=== PATIENT | male | born 1940 | race Caucasian/White ===

== ENCOUNTER 2016-08-24 14:13 | Day surgery (SDC) | payer BC ==
--- NOTE | 2016-08-24 07:16 | History and Physical - [facility] ---
CHIEF COMPLAINT/HISTORY OF CHIEF COMPLAINT: This patient presents with a history of an intractable post laminectomy radiculitis. A spinal cord stimulator trial was conducted on 07/26/16 with up to 75-90% pain control. Due to the failure of all therapy and the success of the stimulator trial, the patient presents today for implantation of a permanent system. PAST MEDICAL HISTORY: Hypertension, chronic obstructive pulmonary disease, cerebrovascular disease, and bladder dysfunction. PAST SURGICAL HISTORY: Spinal surgery and multiple surgeries to be identified. EMPLOYMENT STATUS: Retired. MEDICATIONS ON ADMISSION: List to be provided. ALLERGIES: IODINE. FAMILY/PSYCHOSOCIAL HISTORY: Social history - Social alcohol and caffeine. Family history - Diabetes and cancer. SYSTEMS REVIEW: The patient seems appropriate in no acute distress. The remainder of the systems review is positive for breathing difficulties, degenerative arthritis, depression and difficulty sleeping. PHYSICAL EXAMINATION: Height and weight are not known. Vital signs - Not available. HEENT: Within normal limits. LUNGS: Clear. HEART: Regular rate and rhythm. ABDOMEN: Nontender. MUSCULOSKELETAL: Examination of the musculoskeletal system shows diffuse tenderness at the lumbar spine. Range of motion does cause pain moving down throughout the low back moving into both legs. Ambulation - No assistive device utilized. NEUROLOGIC: Cranial nerves are intact. IMPRESSION: 1. POST LUMBAR LAMINECTOMY SYNDROME, ICD10 CODE M96.1. 2. LUMBAR RADICULITIS, ICD10 CODE M54.16 AND M54.17. PLAN: Due to the failure of all therapy and the success of the spinal cord stimulator trial, the patient presents today for implantation of a permanent system. All of the potential risks, side effects, and complications have been reviewed including dural puncture, nerve root injury, and spinal cord injury. He understands and has consented. We will consider outpatient although an overnight stay will be evaluated if necessary. STEPHY WESLEY D.O. Date & Time JOB NUMBER: [id number] MTDD
[~2016-08-24 14:13] MED LIST: *PACU ONLY* KETAMINE HCL 10 MG/ML (20ML) VIAL IV ONE; ACETAMINOPHEN 1000MG/100 ML PREMIX IV ONE; BUPIVACAINE 0.5% W/EPI MPF 30 ML VIAL IVP ONE; CLINDAMYCIN 600MG/4 ML VIAL IV ONE; CLINDAMYCIN 600MG/50ML PREMIX 600 MG/50 ML BAG IVPB ONE; FAMOTIDINE 20MG TABLET PO ONE; FENTANYL PF 100MCG/2ML VIAL IV ONE; FLUMAZENIL 1MG/10ML VIAL IV ONE; LIDOCAINE 1% W/EPI 1:200,000 MPF 30ML SQ ONE; LIDOCAINE 2% MDV (20MG/ML) 20ML VIAL IV ONE; MECLIZINE 25 MG TABLET PO ONE; METOCLOPRAMIDE 10 MG TABLET PO ONE; MIDAZOLAM HCL 2MG/2ML VIAL IV ONE; PROPOFOL 10 MG/ML VIAL IV ONE
[2016-08-24 15:57] LABS: PARTIAL THROMBOPLASTIN TIME 27.6 SECONDS (24.5-39.1)
[2016-08-24 16:08] LABS: INR 0.99; PROTHROMBIN TIME (PATIENT) 11.2 SECONDS (9.5-12.1)
[2016-08-24] MEDS ORDERED: PATIENT OWN MED: MECLIZINE 25 MG PO PRN (17:31)
[2016-08-24] MEDS ORDERED: BENZONATATE 200 MG PO PRN (17:32)
[2016-08-24] MEDS ORDERED: AL HYDROX/MAG HYDROX 30ML UD PO PRN (17:35)
[2016-08-24] MEDS ORDERED: METOCLOPRAMIDE 10 MG TABLET PO PRN (17:35)
[2016-08-24] MEDS ORDERED: OXYCODONE/APAP 10MG-325MG TABLET PO PRN (17:35)
[2016-08-24] MEDS ORDERED: TEMAZEPAM 15 MG CAPSULE PO PRN ×2 (17:35)
[2016-08-24] MEDS ORDERED: HYDROMORPHONE HCL 2 MG/ML VIAL IM PRN (17:35)
[2016-08-24] MEDS ORDERED: DIPHENHYDRAMINE HCL 25 MG CAPSULE PO PRN ×2 (17:35)
[2016-08-24] MEDS ORDERED: DIPHENHYDRAMINE HCL IV 50 MG/ML VIAL IVP PRN ×2 (17:35)
[2016-08-24] MEDS ORDERED: METOCLOPRAMIDE HCL 10 MG/2 ML VIAL IVP PRN (17:35)
[2016-08-24] MEDS ORDERED: ACETAMINOPHEN 325 MG TAB PO PRN ×2 (17:35)
[2016-08-24] MEDS ORDERED: HYDROCODONE/APAP 7.5/325MG TABLET PO PRN ×2 (17:35)
[2016-08-24] MEDS ORDERED: HYDROMORPHONE HCL 1 MG/ML CPJ IM PRN (17:35)
[2016-08-24] MEDS ORDERED: SENNOSIDES/DOCUSATE SODIUM UD CAPSULE PO PRN ×2 (17:35)
[2016-08-24] MEDS: OXYCODONE/APAP 10MG-325MG TABLET PO PRN (18:59)
[2016-08-24] MEDS ORDERED: PATIENT OWN MED: ATORVASTATIN 10 MG PO SCH (22:00)
[2016-08-24] MEDS ORDERED: PATIENT OWN MED: ADVAIR 250/50 INH SCH (22:00)
[2016-08-24] MEDS ORDERED: 0.9 % SODIUM CHLORIDE 10ML SYR IVP SCH (22:00)
[2016-08-24] MEDS ORDERED: ATROVENT INH SCH (22:00)
[2016-08-24] MEDS ORDERED: SOTALOL 80 MG PO SCH (22:00)
[2016-08-24] MEDS ORDERED: TOLTERODINE 4 MG PO SCH (22:00)
[2016-08-24] MEDS: CLINDAMYCIN 600MG/50ML PREMIX 600 MG/50 ML BAG IVPB SCH (22:12)
[2016-08-25] MEDS: CLINDAMYCIN 600MG/50ML PREMIX 600 MG/50 ML BAG IVPB SCH (05:34)
[2016-08-25] MEDS: OXYCODONE/APAP 10MG-325MG TABLET PO PRN (05:53)
[2016-08-25] MEDS ORDERED: PATIENT OWN MED: PANTOPRAZOLE 40 MG PO SCH (07:00)
[2016-08-25] MEDS ORDERED: PATIENT OWN MED: HUMALOG KWIKPEN SC SCH (07:45)
[2016-08-25] MEDS ORDERED: LOSARTAN PO SCH (10:00)
[2016-08-25] MEDS ORDERED: HCTZ PO SCH (10:00)
[2016-08-25] MEDS ORDERED: JANUVIA 100 MG PO SCH (10:00)
[2016-08-25] MEDS ORDERED: LANTUS SC SCH (10:00)
--- NOTE | 2016-08-30 12:38 | RADIOLOGY REPORT ---
EXAM: AP LUMBAR SPINE HISTORY: POST SPINAL CORD STIMULATOR IMPLANT. TECHNIQUE: A single AP portable view of the lumbar spine was obtained including the lower thoracic spine. Comparison: Lumbar spine series 08/08/16. FINDINGS: Since the prior exam a battery pack has been placed overlying the right lower quadrant with two wires/catheters extending from this to overlie the lumbar spine and then ascend up into the lower thoracic region to the level of the inferior aspect of the body of T7. Prominent spurring is again noted in the spine. IMPRESSION: BATTERY PACK RIGHT LOWER QUADRANT WITH ASSOCIATED CATHETERS/ELECTRODE LEADS EXTENDING UP TO THE T7 LEVEL. JOB NUMBER: [id number] MTDD
== END 2016-08-25 09:40 | disposition home or self-care (01) ==
LOC: SUR 14:13 → MEDSURG 18:33 → SUR 08-25 09:40
PROVIDERS: ATTEND Pain Medicine Interventional Pain Medicine
DX: M96.1 Postlaminectomy syndrome, not elsewhere classified (principal); M54.16 Radiculopathy, lumbar region; M54.17 Radiculopathy, lumbosacral region; E11.9 Type 2 diabetes mellitus without complications; Z79.4 Long term (current) use of insulin; E78.00 Pure hypercholesterolemia, unspecified; Z79.01 Long term (current) use of anticoagulants; J44.9 Chronic obstructive pulmonary disease, unspecified
CPT/HCPCS: 95972; 85730; 85610; 36416; 82948; 85002; 72020; 94640; 63685; 63650 ×2; 00300; J3010

== ENCOUNTER 2017-03-15 08:48 | Day surgery (SDC) | payer BC ==
--- NOTE | 2017-03-15 07:37 | History and Physical Report ---
DATE: 03/14/2017. CHIEF COMPLAINT AND HISTORY OF CHIEF COMPLAINT: This patient presents with a history of an intractable lumbar radiculitis postlaminectomy in nature. This was managed by the placement of a spinal cord stimulator on 08/24/2016. Although initially it appeared that everything was working properly, subsequently changes of the stimulation pattern developed. It appeared after x- rays were taken that there had been some shifting of the leads which caused shifting and changes of the pattern of stimulation. Multiple attempts at programming options, or simple options, to regain stimulation were unsuccessful. He is here today for lead revision to maximize stimulation. PAST MEDICAL HISTORY: Hypertension, chronic obstructive pulmonary disease, cerebrovascular disease, bladder dysfunction. PAST SURGICAL HISTORY: Lumbar spinal surgery. EMPLOYMENT STATUS: Retired. MEDICATIONS ON ADMISSION: To be provided. ALLERGIES: Iodine, sulfa, codeine, IVP dye. REVIEW OF SYSTEMS: The patient is appropriate and in no acute distress. The remainder of the systems review shows breathing difficulties, degenerative arthritis, depression, sleep disorder. PHYSICAL EXAMINATION: General: Height and weight are not known. Vital Signs: Unavailable. HEENT: Within normal limits. Lungs: Clear. Heart: Regular rate and rhythm. Abdomen: Nontender. Musculoskeletal: Examination of the musculoskeletal system shows the generator site to be in the right posterior gluteal margin. The incisions are intact. The midline incision approximates T12-L1 and appears to be intact. There is no cellulitis or breakdown. Primary pain pattern is low back and bilateral lower extremities, across an L4-L5 pattern. Sensory levy and motor function appear to be intact. Neurologic: Cranial nerves are intact. IMPRESSION: 1. POSTLUMBAR LAMINECTOMY SYNDROME, ICD-10 CODE M96.1. 2. LUMBAR RADICULITIS, ICD-10 CODE M54.16 AND M54.17. 3. SPINAL CORD STIMULATOR INTERNAL GENERATOR NONFUNCTIONAL. PLAN: The patient is here for revision of the lead position in attempt to maximize the stimulation patterns. We will consider the procedure outpatient, although an overnight stay may be evaluated. The patient understands that if we are unsuccessful in gaining appropriate position of the system to get restimulation to the appropriate areas, we will remove the device. The potential risks, side effects, and complications have all been discussed and reviewed. JOB NUMBER: [id number] cc: Sander Arambula
[~2017-03-15 08:48] MED LIST changes: -*PACU ONLY* KETAMINE HCL 10 MG/ML (20ML) VIAL IV ONE; +ACETAMINOPHEN 1,000 MG/100 ML BTL IV ONE; -ACETAMINOPHEN 1000MG/100 ML PREMIX IV ONE; -BUPIVACAINE 0.5% W/EPI MPF 30 ML VIAL IVP ONE; -CLINDAMYCIN 600MG/4 ML VIAL IV ONE; -FENTANYL PF 100MCG/2ML VIAL IV ONE; -FLUMAZENIL 1MG/10ML VIAL IV ONE; -LIDOCAINE 1% W/EPI 1:200,000 MPF 30ML SQ ONE; -LIDOCAINE 2% MDV (20MG/ML) 20ML VIAL IV ONE; -MIDAZOLAM HCL 2MG/2ML VIAL IV ONE; -PROPOFOL 10 MG/ML VIAL IV ONE
[2017-03-15] MEDS ORDERED: CLINDAMYCIN (PEDIATRIC DOSING) 150 MG/ML VIAL IVPB ONE (08:49)
[2017-03-15] MEDS ORDERED: FLUMAZENIL 1MG/10ML VIAL IV ONE (08:49)
[2017-03-15] MEDS ORDERED: PROPOFOL 10 MG/ML VIAL IV ONE (08:49)
[2017-03-15] MEDS ORDERED: NALOXONE 0.4 MG/1 ML VIAL IVP ONE (08:49)
[2017-03-15] MEDS ORDERED: *PACU ONLY* KETAMINE HCL 10 MG/ML (20ML) VIAL IV ONE (08:49)
[2017-03-15] MEDS ORDERED: MIDAZOLAM HCL 2MG/2ML VIAL IV ONE (08:49)
[2017-03-15] MEDS ORDERED: LIDOCAINE 2% MDV (20MG/ML) 20ML VIAL IV ONE (08:49)
[2017-03-15] MEDS ORDERED: LIDOCAINE 1% W/EPI 1:200,000 MPF 30ML SQ ONE (08:49)
[2017-03-15] MEDS ORDERED: FENTANYL PF 100MCG/2ML VIAL IV ONE (08:49)
[2017-03-15] MEDS ORDERED: BUPIVACAINE 0.75% W/EPI MPF 30ML VIAL IVP ONE (08:49)
[2017-03-15] MEDS ORDERED: ACETAMINOPHEN 325 MG TAB PO PRN ×2 (14:32)
[2017-03-15] MEDS ORDERED: METOCLOPRAMIDE 10 MG TABLET PO PRN (14:32)
[2017-03-15] MEDS ORDERED: METOCLOPRAMIDE HCL 10 MG/2 ML VIAL IVP PRN (14:32)
[2017-03-15] MEDS ORDERED: HYDROCODONE/APAP 7.5/325MG TABLET PO PRN (14:32)
[2017-03-15] MEDS ORDERED: OXYCODONE/APAP 10MG-325MG TABLET PO PRN ×2 (14:32)
[2017-03-15] MEDS ORDERED: TEMAZEPAM 15 MG CAPSULE PO PRN ×2 (14:32)
[2017-03-15] MEDS ORDERED: AL HYDROX/MAG HYDROX 30ML UD PO PRN (14:32)
[2017-03-15] MEDS ORDERED: HYDROMORPHONE HCL 2 MG/ML VIAL IM PRN (14:32)
[2017-03-15] MEDS ORDERED: HYDROMORPHONE HCL 1 MG/ML CPJ IM PRN (14:32)
[2017-03-15] MEDS ORDERED: DIPHENHYDRAMINE HCL 25 MG CAPSULE PO PRN ×2 (14:32)
[2017-03-15] MEDS ORDERED: SENNOSIDES/DOCUSATE SODIUM UD CAPSULE PO PRN ×2 (14:32)
[2017-03-15] MEDS ORDERED: DIPHENHYDRAMINE HCL IV 50 MG/ML VIAL IVP PRN ×2 (14:32)
[2017-03-15] MEDS: CLINDAMYCIN 600MG/50ML PREMIX 600 MG/50 ML BAG IVPB SCH ×2 (15:07→20:26)
[2017-03-15] MEDS ORDERED: LIDOCAINE 5% PATCH TOP PRN (15:33)
[2017-03-15] MEDS: HYDROCODONE/APAP 7.5/325MG TABLET PO PRN ×2 (15:47→21:15)
[2017-03-15] MEDS ORDERED: ALBUTEROL HFA 8 GM INHALER INH PRN (16:00)
--- NOTE | 2017-03-15 17:27 | Operative Note - [facility] ---
DATE OF SURGERY: 03/15/17 PREOPERATIVE DIAGNOSES: 1. POST LUMBAR LAMINECTOMY SYNDROME, ICD-10 CODE = M96.12. 2. LUMBAR RADICULITIS, ICD-10 CODE = M54.16 AND M54.17. 3. SPINAL CORD STIMULATOR NONFUNCTIONAL AND PAINFUL GENERATOR POUCH. OPERATION: 1. INCISION, SUBCUTANEOUS DISSECTION, AND REMOVAL OF TWO NONFUNCTIONAL SPINAL CORD STIMULATORS. 2. INCISION, SUBCUTANEOUS DISSECTION, AND REMOVAL OF INTERNAL PULSE GENERATOR RIGHT POSTERIOR GLUTEAL MARGIN. 3. EPIDURAL ACCESS 11-12 LEFT USING CATHETER GUIDE ACCESS, PLACEMENT OF SPINAL CORD STIMULATOR LEAD 1, A [employer] INFINION 16 WITH 16 ELECTRODES POSITIONED LEFT T6-7. 4. FLUOROSCOPICALLY-GUIDED EPIDURAL ACCESS 12-1, LEFT USING CATHETER ACCESS GUIDE. PLACEMENT OF SPINAL CORD STIMULATOR LEAD 2, A [employer] INFINION 16 WITH 16 ELECTRODES POSITIONED RIGHT T6-7. 5. COMPLEX PROGRAMMING OF LEAD 1 OVER 20 MINUTES FOLLOWED BY COMPLEX PROGRAMMING OF LEAD 2 OVER 20 MINUTES. 6. ANCHORING OF LEAD 1 AND LEAD 2 TO SUPRASPINOUS FASCIA USING A [employer] LOCKING ANCHOR. 7. INCISION, SUBCUTANEOUS DISSECTION, AND CREATION OF NEW SUBCUTANEOUS POUCH ABOVE BELT LINE FOR PLACEMENT OF NEW GENERATOR, [employer] PROGRAMMABLE RECHARGEABLE. 8. TUNNELING BETWEEN LEAD POUCHES, PLACEMENT OF EXTERNAL PORTION OF LEAD 1 AND LEAD 2 INTO GENERATOR POUCH. EACH LEAD WITH ITS BIFURCATED EXTENSION INTERFACED TO THE GENERATOR. 9. PLACEMENT OF LEADS INTO POUCH AND GENERATOR TO POUCH. CLOSURE OF INCISIONS VICRYL FOR FASCIA, RUNNING SUBCUTICULAR VICRYL FOR SKIN. DERMABOND CLOSURE INCLUDING A DERMABOND CLOSURE OVER THE PREVIOUS GENERATOR POUCH BELOW THE BELT LINE, RIGHT POSTERIOR GLUTEAL MARGIN. 10. PROGRAMMING INTERNAL GENERATOR, RECOVERY ROOM, TWO STIMULATORS, 20 MINUTES. SURGEON: STEPHY WESLEY D.O. ANESTHESIA: LOCAL SEDATION. ANESTHESIA PROVIDER: DINESH KING CRNA. INDICATION: This patient presents with a previous history of implanted spinal cord stimulator and internal generator, while at home, had complete disruption of stimulation patterns to the left and a migration and shifting of stimulation patterns on the right. Computer evaluation and assessment of the leads identified migration and poor functionality. Multiple conservative attempts at regaining stimulation were unsuccessful. He was given the option to remove or replace; he opted to remove and replace. At the same time, the generator pouch below the belt line on the right seemed to be constantly irritated either through the belt or where he was sitting and requested that the generator be relocated above the belt line also on the right side. Because of anatomy, the relocation was a significant distance and for that reason it was felt that we were replacing leads, we would also replace the generator; along with the fact that the system seemed to be borderline in its function. PROCEDURE: Intravenous line, vital sign monitoring, IV sedation, prepped and draped with sterile technique. Under imaging, the incision for the leads at the T11-12, 12-11 interspace were infiltrated, incision made, and subcutaneous dissection was conducted to the leads. The lead extension to the generator was cut. Dissection was performed to the lead anchor. The anchor was released from the subcutaneous tissue.The anchor removed and then a catheter guide was placed over each lead into the epidural space and each lead was removed. At 11-12 through the catheter guide, spinal cord stimulator lead 1, a [employer] Infinion 16 with 16 electrodes, positioned left of the midline at T6-7. After lead 2 was removed and a catheter guide placed, lead 2 spinal cord stimulator, a [employer] Infinion 16 with 16 electrodes was positioned through the catheter guide right of the midline at T6-7. Complex programming of lead 1 over 20 minutes followed by complex programming of lead 2 over 20 minutes ultimately resulting in a patterns of stimulation across the back and into the hips and down into the feet; patient indicating this was the stimulation pattern he was trying to achieve. He was given the option to implant or continue to program; he opted to implant. He was re-sedated. The incision for the previous leads and the insertion of catheter guides was then widened and revised to accommodate the new system. Antibiotic irrigation and Bovie for hemostasis. Using a [employer] Locking Germfask, each of the two newly inserted leads was anchored to the supraspinous fascia with a Locking Germfask and nonabsorbable suture. A the right posterior gluteal margin below the belt line, the previous generator pouch , infiltrated, incision made, and subcutaneous dissection was conducted to the generator pouch. The generator was then removed intact along with its connections to the leads previously removed. The new pouch above the belt line on the right was then infiltrated, incision made, and subcutaneous dissection was conducted to form a pouch of suitable size and depth for the generator. Antibiotic irrigation and Bovie for hemostasis. A tunneling tool was then used to carry the two new leads into the new pouch and then each lead to interface with its bifurcated components to the generator. The generator was placed into the pouch and secured with nonabsorbable suture. With the leads coiled in place in their own pouch and the generator now in its own pouch, the incisions were closed Vicryl for fascia, running subcuticular Vicryl for skin. The previous generator pouch was also closed Vicryl for fascia and running subcuticular Vicryl for skin. A Dermabond closure to approximate the wounds was then provided at all three incisional sites. The patient was transported to the Recovery Room, stable, showing no side-effects from the procedure or the sedation. In the Recovery Room, complex programming of the internal generator over 20 minutes performed re-establishing stimulation and pain control to all of the appropriate areas. The patient was instructed on the surgery and the use of the system. He will be kept for monitoring and then evaluated for discharge home. DISCHARGE INSTRUCTIONS IN THE MORNIN. The sites will remain clean and dry. No showering or bathing although the Dermabond will allow showering in 12-24 hours. 2. Standard medications resumed including Levaquin, the antibiotic, 500 mg once a day for 14 days. 3. His activities will remain low. No bend, lift, push, pull until he is seen in the office in 7-10 days. At that point, we will evaluate for gradual increase in activity levels. All other instructions provided, numbers to contact , problems given, at that point he was prepared for discharge. cc: Dr. Josue JOB NUMBER: [id number] MTDD
[2017-03-15] MEDS: CLINDAMYCIN 150 MG CAP PO SCH (21:16)
[2017-03-15] MEDS ORDERED: 0.9 % SODIUM CHLORIDE 10ML SYR IVP SCH (22:00)
[2017-03-15] MEDS ORDERED: IPRATROPIUM BR 0.02% NEB (0.5MG) INH SCH (22:00)
[2017-03-15] MEDS ORDERED: ADVAIR INHALER PUFF SCH (22:00)
[2017-03-15] MEDS ORDERED: DETROL 4 MG PO SCH (22:00)
[2017-03-15] MEDS ORDERED: SOTALOL HCL 80 MG TABLET PO SCH (22:00)
[2017-03-16] MEDS: CLINDAMYCIN 150 MG CAP PO SCH ×2 (02:01→09:00)
[2017-03-16] MEDS: HYDROCODONE/APAP 7.5/325MG TABLET PO PRN (06:06)
[2017-03-16] MEDS ORDERED: PANTOPRAZOLE SODIUM 40 MG TABLET PO SCH (07:00)
--- NOTE | 2017-03-16 09:29 | RADIOLOGY REPORT ---
EXAM: THORACOLUMBAR SPINE, ONE VIEW HISTORY: SPINAL CANAL STIMULATOR REVISION. TECHNIQUE: An AP portable supine view of the spine was obtained including the lower two-thirds of the thoracic spine and the majority of the lumbar spine. Comparison: Single view spine dated 08/24/16. FINDINGS: A dual lead interspinal stimulator is in place with the leads appearing to enter the spinal canal near the L1-L2 level. The lead tips project at the T6 level. There are degenerative changes scattered throughout the thoracic and lumbar portions of the spine. The spinal stimulator generator projects at the right mid abdominal level. IMPRESSION: DUAL LEAD SPINAL STIMULATOR IN PLACE, DISCUSSED ABOVE. JOB NUMBER: [id number] MTDD
[2017-03-16] MEDS ORDERED: HYDROCHLOROTHIAZIDE 25 MG TABLET PO SCH (10:00)
[2017-03-16] MEDS ORDERED: LOSARTAN POTASSIUM 100 MG TABLET PO SCH (10:00)
[2017-03-16] MEDS ORDERED: DOCUSATE SODIUM 100 MG CAPSULE PO SCH (10:00)
== END 2017-03-16 09:30 | disposition home or self-care (01) ==
LOC: SUR 08:48 → MEDSURG 14:47 → SUR 03-16 09:30
PROVIDERS: ATTEND Pain Medicine Interventional Pain Medicine
DX: T85.193A Other mechanical complication of implanted electronic neurostimulator, generator, initial encounter (principal); T85.192A Other mechanical complication of implanted electronic neurostimulator of spinal cord electrode (lead), initial encounter; M96.1 Postlaminectomy syndrome, not elsewhere classified; M54.16 Radiculopathy, lumbar region; M54.17 Radiculopathy, lumbosacral region; I10 Essential (primary) hypertension; J44.9 Chronic obstructive pulmonary disease, unspecified; Z86.73 Personal history of transient ischemic attack (TIA), and cerebral infarction without residual deficits; E11.9 Type 2 diabetes mellitus without complications; Z79.4 Long term (current) use of insulin
CPT/HCPCS: 63685; 63688; 00300; 95972; 36416; 82948; 72020; J3010; J3490; C1820; C1883; J2310

== ENCOUNTER 2017-08-14 13:16 | Emergency (ER) | payer BC ==
--- NOTE | 2017-08-14 13:47 | Emergency Department Record ---
History of Present Illness - General Chief Complaint: Headache Migraine Stated Complaint: HEADACHE X MONTH Time Seen by Provider: 08/14/17 13:42 Source: Patient Mode of Arrival: Ambulatory Limitations: No limitations - History of Present Illness Initial Comments: 77 yo male presents to ED for evaluation of headache symptoms x 1 month. Patient reports sinus congestion and pain symptoms, and "sharp" bilateral pain from hever sinuses extending to the scalp x 4 days. Patient reports taking Excedrin which improved his symptoms. Patient denies head injury or trauma, but does report taking warfarin for atrial fibrillation. patient denies focal weakness on examination as well. MD Complaint: Headache Onset/Timin -: Month(s) Onset Description: Gradual Location: Left, Right Severity: Moderate Severity scale (1-10): 6 Quality: Aching Consistency: Intermittent Improves With: Nothing Worsens With: None Associated Symptoms: Nausea, Weakness (generalized) Treatments Prior to Arrival: Other - Symptoms of Stroke Symptom Onset Unknown: Yes Symptoms of stroke: Dizziness, Muscle Weakness, Vertigo - Related Data Home Medications Medication Instructions Recorded Confirmed Last Taken Albuterol Sulfate [Proair Hfa] 1 - 2 puff IH .EVERY 4-6 HOURS PRN 08/14/1708/14 Unknown Ascorbic Acid [Vitamin C] 500 mg PO DAILY 08/14/17 08/14/17 Unknown Atorvastatin Calcium [Lipitor] 10 mg PO QHS 08/14/17 08/14/17 Unknown Cholecalciferol (Vitamin D3) 5,000 unit PO DAILY 08/14/17 08/14/17 Unknown [Vitamin D3] Diphenhydramine HCl [Benadryl] 25 mg PO ASDIR 08/14/17 08/14/17 Unknown Docusate Sodium [Colace] 100 mg PO DAILY 08/14/17 08/14/17 Unknown Fluticasone/Salmeterol [Advair 1 each IH BID 08/14/17 08/14/17 Unknown 250-50 Diskus] Insulin Glargine,Hum.rec.anlog 40 unit SQ QHS 08/14/17 08/14/17 Unknown [Lantus Solostar] Insulin Lispro [Humalog Kwikpen] 12 unit SQ WMEALS 08/14/17 08/14/17 08/14/17 Ipratropium [place] [Atrovent Hfa] 12.9 gm IH BID 08/14/17 08/14/17 Unknown Lidocaine Patch [Lidoderm] 1 each TOP ASDIR 08/14/17 08/14/17 Unknown Losartan/Hydrochlorothiazide 1 each PO DAILY 08/14/17 08/14/17 Unknown [Losartan-Hctz 100-25 mg Tab] Lubiprostone [Amitiza] 24 mcg PO BID 08/14/17 08/14/17 Unknown Meclizine HCl [Antivert] 25 mg PO Q8H 08/14/17 08/14/17 Unknown Oxycodone HCl/Acetaminophen 1 each PO BID 08/14/17 08/14/17 Unknown [Endocet 7.5-325 mg Tablet] Pantoprazole Sodium 40 mg PO DAILY 08/14/17 08/14/17 08/14/17 Pregabalin [Lyrica] 25 mg PO BID 08/14/17 08/14/17 Unknown Sotalol HCl [Betapace] 80 mg PO BID 08/14/17 08/14/17 08/14/17 Tolterodine Tartrate [Detrol LA] 4 mg PO DAILY 08/14/17 08/14/17 Unknown Warfarin Sodium [Coumadin] 4 mg PO DAILY 08/14/17 08/14/17 Unknown Allergies Allergy/AdvReac Type Severity Reaction Status Date / Time codeine Allergy Severe SHORTNESS Verified 08/14/17 13:40 OF BREATH fentanyl [From Duragesic] Allergy HIVES Verified 08/14/17 13:40 gabapentin Allergy HIVES Verified 08/14/17 13:40 mirtazapine Allergy HIVES Verified 08/14/17 13:40 morphine Allergy HIVES Verified 08/14/17 13:40 pregabalin [From Lyrica] Allergy PT UNSURE Verified 08/14/17 13:40 OF REACTION Sihxutr-Mco-Srw Reductase Allergy HIVES Verified 08/14/17 13:40 Inhibitor topiramate [From Topamax] Allergy HIVES Verified 08/14/17 13:40 Sulfa (Sulfonamide AdvReac Intermediate PT UNSURE Verified 08/14/17 13:40 Antibiotics) OF REACTION Penicillins AdvReac Unknown PT UNSURE Verified 08/14/17 13:40 OF REACTION IVP dye contrast Allergy Severe ANAPHYLAXIS Uncoded 08/14/17 13:40 Travel Screening - Travel/Exposure Within Last 30 Days Have you traveled within the last 30 days?: No Review of Systems Constitutional: Denies: Chills, Fever, Malaise, Night sweats Eyes: Denies: Eye discharge, Eye pain ENT: Denies: Congestion, Ear pain, Epistaxis Respiratory: Denies: Cough, Dyspnea Cardiovascular: Denies: Chest pain, Dyspnea on exertion Endocrine: Denies: Fatigue, Heat or cold intolerance Gastrointestinal: Denies: Abdominal pain, Nausea, Vomiting Genitourinary: Denies: Incontinence, Retention Musculoskeletal: Denies: Arthralgia, Back pain, Gout, Joint swelling Skin: Denies: Bruising, Change in color Neurological: Reports: Headache. Denies: Abnormal gait, Seizure Psychiatric: Denies: Anxiety Hematological/Lymphatic: Reports: Easy bleeding, Easy bruising. Denies: Anemia , Blood Clots Past Medical History - SOCIAL HISTORY Smoking Status: Former smoker Alcohol Use: None Drug Use: None - RESPIRATORY Hx Respiratory Disorders: Yes Hx Bronchitis: Yes (nothing recent) Hx COPD: Yes (controlled) Hx Pneumonia: Yes Hx Sleep Apnea: Yes - CARDIOVASCULAR Hx Cardio Disorders: Yes Hx Cardiac Cath: Yes (x 3) Hx Chest Pain: Yes (chest wall spasms-muscle only) Hx Deep Vein Thrombosis: No Hx Hypertension: Yes Hx Irregular Heartbeat: Yes (afib) Comment:: carotid bruit, PAD - NEURO Hx Neuro Disorders: Yes Hx Dizziness: Yes (vertigo) Hx Neuropathy: Yes (legs) Hx TIA: Yes (x 6) Hx Weakness: Yes (legs) - GI Hx GI Disorders: Yes Hx Abdominal Pain: Yes Hx Reflux: Yes (Rx protonix) Hx Nausea/Vomiting: Yes (nausea only) Hx Pancreatitis: Yes (chronic) Hx Ulcer: Yes (duodenal-40yrs ago) Hx Wt Loss/Wt Gain: Yes (fluctuates) Hx of Polyps: Yes (colon) - Hx Genitourinary Disorders: Yes Hx Bladder Problem: Yes (spasms) Hx Prostate Problems: Yes (Ca-) Comment:: ckd - ENDOCRINE Hx Endocrine Disorders: Yes Hx Diabetes: Yes - MUSCULOSKELETAL Hx Musculoskeletal Disorders: Yes Hx Arthritis: Yes (spine) Hx Fibromyalgia: Yes - PSYCH Hx Psych Problems: Yes Hx Anxiety: Yes Hx Depression: Yes - HEMATOLOGY/ONCOLOGY Hx Hematology/Oncology Disorders: Yes Hx Bruising: Yes (on Warfarin) Hx Cancer: Yes (prostate) Hx Radiation Therapy: Yes Hx Clotting Problems: Yes (on blood thinner) Family Medical History Any Significant Family History?: Yes Hx Cancer: Father *Cancer Comment: prostate Hx Diabetes: Father Hx Heart Disease: Mother *Heart Comment: CHF Hx HTN: Father, Mother Hx Stroke: Grandparents Physical Exam - General General Appearance: Alert, Oriented x3, Cooperative, Mild distress Limitations: No limitations - Head Head exam: Atraumatic, Normocephalic, Normal inspection Head exam detail: negative: Abrasion, Contusion, Patrick's sign, General tenderness, Hematoma, Laceration - Eye Eye exam: Normal appearance. negative: Conjunctival injection, Periorbital swelling, Periorbital tenderness, Scleral icterus - ENT Ear exam: negative: Auricular hematoma, Auricular trauma Nasal Exam: negative: Active bleeding, Discharge, Dried blood, Foreign body Mouth exam: negative: Drooling, Laceration, Tongue elevation - Neck Neck exam: Normal inspection. negative: Meningismus, Tenderness - Respiratory Respiratory exam: Normal lung sounds bilaterally. negative: Rales, Respiratory distress, Rhonchi, Stridor - Cardiovascular Cardiovascular Exam: Regular rate, Normal rhythm, Normal heart sounds - GI/Abdominal GI/Abdominal exam: Soft. negative: Rebound, Rigid, Tenderness - Rectal Rectal exam: Deferred - exam: Deferred - Extremities Extremities exam: Normal inspection. negative: Calf tenderness, Pedal edema, Tenderness - Back Back exam: Denies: CVA tenderness (R), CVA tenderness (L) - Neurological Neurological exam: Alert, Normal gait, Oriented X3. negative: Motor sensory deficit - Psychiatric Psychiatric exam: Normal affect, Normal mood - Skin Skin exam: Normal color. negative: Abrasion Type of lesion: negative: abrasion Course Vital Signs 08/14/17 13:22 Temperature 97.4 F L Pulse Rate 67 Respiratory 20 Rate Blood Pressure 139/65 Pulse Ox 97 - Reevaluation(s) Reevaluation #1: 08/14/17 14:28 Labs reviewed, INR 2.5, labs are otherwise grossly unremarkable for an acute process. CT Brain: No acute process. Patient was updated on all results, currently sleeping and resting comfortably. Patient has steady gait on examination, and appears stable for discharge at this time. Medical Decision Making - Lab Data Result diagrams: 08/14/17 13:55 08/14/17 13:55 Disposition Disposition: Discharge Clinical Impression: Headache Qualifiers: Headache type: unspecified Headache chronicity pattern: acute headache Intractability: not intractable Qualified Code(s): R51 - Headache Disposition: Home, Self-Care Condition: (2) Stable Instructions: Acute Headache (ED) Additional Instructions: Return to ED if your symptoms worsen or if you have any concerns. Follow-up with your family doctor in 3-5 days as directed. Forms: Patient Portal Access Time of Disposition: 14:45 Quality - Quality Measures Quality Measures: N/A - Blood Pressure Screening Does Patient Have Any of the Following: No Blood Pressure Classification: Pre-Hypertensive BP Reading Systolic Measurement: 139 Diastolic Measurement: 65 Screening for High Blood Pressure: < Pre-Hypertensive BP, F/U Documented > [ [id number]] Pre-Hypertensive Follow-up Interventions: Referral to alternative/primary care provider.
[2017-08-14 14:02] LABS: BASO % 0.1 % (0-6); EOS % 2.2 % (0-6); GRAN % 79.6 % (47-80); HEMATOCRIT 43.7 % (42.0-52.0); LYMPH % 8.8 % (16-45); MEAN CELL VOLUME 83.7 fl (81-97); MEAN CORPUSCULAR HEMOGLOBIN 26.8 pg (27-33); MEAN PLATELET VOLUME 11.9 fl (7.4-10.4); MONO % 9.3 % (0-9); PLATELET COUNT 176 K/uL (130-400); RED BLOOD COUNT 5.22 M/uL (4.40-5.70); RED CELL DISTRIBUTION WIDTH 17.1 % (11.5-14.5); WHITE BLOOD COUNT W/O DIFF 9.7 K/uL (4.2-12.2)
[2017-08-14 14:15] LABS: INR 2.5
[2017-08-14 14:17] LABS: BLOOD UREA NITROGEN 16 mg/dL (8-23); CREATININE 0.8 mg/dL (0.7-1.2); EST GLOMERULAR FILTRATION RATE > 60 mL/min
[2017-08-14 14:20] LABS: GLUCOSE,RANDOM 159 mg/dL (74-109)
[2017-08-14 14:23] LABS: ALB/GLOB RATIO 1.4 (1.1-1.8); ALBUMIN 4.1 g/dL (4.0-5.0); ALKALINE PHOSPHATASE 93 U/L (40-129); ALT/SGPT 13 U/L (<41); AST/SGOT 15 U/L (10.0-50.0)
--- NOTE | 2017-08-15 10:01 | CT SCAN REPORT ---
EXAM: EMERGENCY HEAD CT HISTORY: HEADACHE, ON ANTICOAGULATION. TECHNIQUE: Axial CT scan of the head was performed without IV contrast. Comparison: None. FINDINGS: No definite acute intracranial hemorrhage identified. No focal mass effect or midline shift apparent. Moderate generalized atrophy with some mild chronic appearing deep white matter changes, nonspecific, but likely representing some chronic small vessel deep white matter ischemic disease. No definite acute infarct or intracranial mass lesion is seen. Moderate membrane thickening in both maxillary antra inferiorly. No depressed calvarial fracture evident. IMPRESSION: 1. GENERALIZED ATROPHY WITH CHRONIC APPEARING DEEP WHITE MATTER CHANGES. 2. NO DEFINITE ACUTE INTRACRANIAL HEMORRHAGE OR FOCAL MASS EFFECT EVIDENT. 3. MODERATE MEMBRANE THICKENING INFERIORLY IN BOTH MAXILLARY ANTRA. JOB NUMBER: [id number] MTDD
== END 2017-08-14 15:13 | disposition home or self-care (01) ==
LOC: ER 13:16
DX: R51 Headache (principal); R42 Dizziness and giddiness; R11.0 Nausea; R53.1 Weakness; I48.91 Unspecified atrial fibrillation; Z79.01 Long term (current) use of anticoagulants; E11.9 Type 2 diabetes mellitus without complications; Z79.4 Long term (current) use of insulin
CPT/HCPCS: 70450; 80053; 85025; 85610; 99283; 99284